=== PATIENT | female | born 1950 | race African-American/Black ===

== ENCOUNTER 2021-05-01 10:40 | Inpatient (IN) ==
[2021-05-01] MEDS ORDERED: ACETAMINOPHEN 325 MG TABLET PO ONE (11:18)
[2021-05-01] MEDS ORDERED: SODIUM CHLORIDE 0.9% 500 ML IV STA ×2 (11:18→12:26)
[2021-05-01 11:54] LABS: Basophils # 0.2 10*3/uL (0.0-0.2); Basophils % 0.9 % (0.0-0.8); Eosinophils % 0.2 % (0.00-10.9); Hematocrit 46.8 VOL% (35.7-47.0); Hemoglobin 15.9 GM/DL (12.0-16.0); Immature Granulocytes % 5.9 %; Immature Granulocytes Absolute 1.16 #; Lymphocytes # 2.2 10*3/uL (1.4-4.0); Lymphocytes % 11.2 % (21.3-54.2); Mean Platelet Volume 10.3 FL (9.6-12.0); Monocytes % 5.6 % (1.7-12.7); NRBC # 0.04 10*3/uL; Neutrophils % 76.2 % (38.7-73.9); Platelet Count 222 T/CUMM (130-400); Red Cell Distribution Width 13.5 % (9.3-17.3); White Blood Count 19.7 T/CUMM (4-12)
[2021-05-01 12:25] LABS: Albumin 2.5 G/DL (3.4-5.0); Calcium 9.3 MG/DL (8.5-10.1); Osmolality,Calculated 277.9 MOS/KG (273-304); Potassium 4.4 MMOL/L (3.5-5.1); Total Protein 7.3 G/DL (6.4-8.2)
[2021-05-01 13:28] LABS: Atypical Lymphocytes Few; Lymphocytes 18 % (20-55); Nucleated Red Blood Cells 1 (0-5); Platelet Estimate Adequate; Reactive Lymphocytes Few; Segmented Neutrophils 74 % (50-85); Total Cells Counted 100
[2021-05-01 14:14] LABS: Bilirubin,Urine Negative (Negative); Blood, Urine Negative (Negative); Glucose,Urine (UA) Negative (Negative); Ketones,Urine Negative (Negative); Nitrite,Urine Negative (Negative); Protein,Urine Negative; Squamous Epithelial Cell,Urine Occasional /HPF (0-10); Urine Appearance CLEAR (Clear); Urine Color Yellow (Yellow); Urine Specific Gravity 1.044 (1.001-1.035)
[2021-05-01 15:36] LABS: Barbiturates Screen,Urine Negative (Negative); Benzodiazepines Screen,Urine Negative (Negative); Cannabinoid Screen,Urine Negative (Negative); Opiate Screen,Urine Negative (Negative); Phencyclidine Screen,Urine Negative (Negative)
[2021-05-01] MEDS ORDERED: DEXTROSE 50% 25 GM/50 ML VIAL IV PRN (17:00)
[2021-05-01] MEDS ORDERED: GLUCAGON 1 MG VIAL IM PRN (17:00)
[2021-05-01] MEDS ORDERED: ONDANSETRON 4 MG/2 ML VIAL IV PRN (17:00)
[2021-05-01] MEDS: cefTRIAXone 1,000 MG in SODIUM CHLORIDE 0.9% 100 ML IV SCH (18:51)
[2021-05-01] MEDS: SODIUM CHLORIDE 0.9% 1,000 ML IV SCH (19:55)
[2021-05-01] MEDS: ACETAMINOPHEN 325 MG TABLET PO PRN (19:55)
[2021-05-02] MEDS: ACETAMINOPHEN 325 MG TABLET PO PRN ×2 (02:42→22:40)
[2021-05-02 08:04] LABS: Basophils # 0.2 10*3/uL (0.0-0.2); Basophils % 0.6 % (0.0-0.8); Eosinophils % 0.1 % (0.00-10.9); Mean Corpuscular Volume 91.3 FL (87-102); Mean Platelet Volume 9.8 FL (9.6-12.0); Platelet Count 186 T/CUMM (130-400)
[2021-05-02 08:10] LABS: Hematocrit 40.9 VOL% (35.7-47.0); Immature Granulocytes % 8.5 %; Immature Granulocytes Absolute 2.04 #; Lymphocytes # 3.2 10*3/uL (1.4-4.0); Lymphocytes % 13.3 % (21.3-54.2); Monocytes % 5.8 % (1.7-12.7); Neutrophils % 71.7 % (38.7-73.9); Red Blood Count 4.48 MC/CUMM (3.8-5.5); Red Cell Distribution Width 13.7 % (9.3-17.3); White Blood Count 24.1 T/CUMM (4-12)
[2021-05-02 08:11] LABS: Hemoglobin 13.9 GM/DL (12.0-16.0)
[2021-05-02 08:23] LABS: Albumin 1.8 G/DL (3.4-5.0); Bilirubin,Total 0.7 MG/DL (0.20-1.00); Calcium 8.7 MG/DL (8.5-10.1); Osmolality,Calculated 281.7 MOS/KG (273-304); Potassium 3.8 MMOL/L (3.5-5.1); Total Protein 6.6 G/DL (6.4-8.2)
[2021-05-02 08:24] LABS: Band Neutrophils 4 % (0-10); Hypochromasia Slight; Lymphocytes 8 % (20-55); Microcytosis Slight; Segmented Neutrophils 83 % (50-85); Total Cells Counted 100
[2021-05-02 08:25] LABS: Platelet Estimate Adequate
[2021-05-02] MEDS: PANTOPRAZOLE 40 MG TABLET PO SCH (08:27)
[2021-05-02] MEDS: SODIUM CHLORIDE 0.9% 1,000 ML IV SCH ×2 (08:29→22:40)
[2021-05-02] MEDS: NICOTINE 21 MG/24 HR PATCH TRANSDERM SCH (09:46)
[2021-05-02] MEDS ORDERED: DEXAMETHASONE 10 MG/1 ML VIAL IV ONE (09:58)
[2021-05-02] MEDS: cefTRIAXone 1,000 MG in SODIUM CHLORIDE 0.9% 100 ML IV SCH (17:26)
[2021-05-03] MEDS: NICOTINE 21 MG/24 HR PATCH TRANSDERM SCH (09:14)
[2021-05-03] MEDS: PANTOPRAZOLE 40 MG TABLET PO SCH (09:14)
[2021-05-03] MEDS: ACETAMINOPHEN 325 MG TABLET PO PRN ×2 (09:18→20:56)
[2021-05-03] MEDS: amLODIPine 5 MG TABLET PO SCH (14:04)
[2021-05-03] MEDS: predniSONE 20 MG TABLET PO SCH ×2 (14:04→20:56)
[2021-05-03] MEDS: cefTRIAXone 1,000 MG in SODIUM CHLORIDE 0.9% 100 ML IV SCH (19:07)
[2021-05-03] MEDS: LORazepam 0.5 MG TABLET PO PRN (20:56)
[2021-05-04] MEDS ORDERED: LORazepam 2 MG/1 ML VIAL IV ONE (00:52)
[2021-05-04 06:04] LABS: Basophils # 0.1 10*3/uL (0.0-0.2); Basophils % 0.5 % (0.0-0.8); Hematocrit 39.7 VOL% (35.7-47.0); Hemoglobin 13.2 GM/DL (12.0-16.0); Immature Granulocytes % 11.9 %; Immature Granulocytes Absolute 2.23 #; Lymphocytes # 2.2 10*3/uL (1.4-4.0); Lymphocytes % 11.8 % (21.3-54.2); Mean Corpuscular HGB Conc 33.2 GM/DL (32-36); Mean Corpuscular Volume 92.5 FL (87-102); Mean Platelet Volume 10.4 FL (9.6-12.0); Monocytes % 3.8 % (1.7-12.7); NRBC # 0.02 10*3/uL; Platelet Count 185 T/CUMM (130-400); Red Blood Count 4.29 MC/CUMM (3.8-5.5); Red Cell Distribution Width 13.7 % (9.3-17.3); White Blood Count 18.8 T/CUMM (4-12)
[2021-05-04 06:33] LABS: Hypochromasia 1+; Lymphocytes 12 % (20-55); Microcytosis Slight; Segmented Neutrophils 80 % (50-85); Total Cells Counted 100
[2021-05-04 06:34] LABS: Platelet Estimate Adequate
[2021-05-04] MEDS: LEVOTHYROXINE 50 MCG TABLET PO SCH (06:38)
[2021-05-04 07:43] LABS: Albumin 1.8 G/DL (3.4-5.0); Bilirubin,Total 0.5 MG/DL (0.20-1.00); Calcium 8.6 MG/DL (8.5-10.1); Total Protein 6.5 G/DL (6.4-8.2)
[2021-05-04 07:57] LABS: Potassium 4.1 MMOL/L (3.5-5.1)
[2021-05-04 08:05] LABS: Sedimentation Rate-Westergren 53 MM/HR (0-30)
[2021-05-04] MEDS ORDERED: AZITHROMYCIN INJ 500 MG in SODIUM CHLORIDE 0.9% 250 ML IV SCH (09:30)
[2021-05-04] MEDS: predniSONE 20 MG TABLET PO SCH ×2 (10:16→21:19)
[2021-05-04] MEDS: amLODIPine 5 MG TABLET PO SCH (10:16)
[2021-05-04] MEDS: PANTOPRAZOLE 40 MG TABLET PO SCH (10:16)
[2021-05-04] MEDS: LORazepam 0.5 MG TABLET PO PRN ×2 (10:16→21:19)
[2021-05-04] MEDS: ASPIRIN EC 81 MG TABLET PO SCH (10:16)
[2021-05-04] MEDS: NICOTINE 21 MG/24 HR PATCH TRANSDERM SCH (10:17)
[2021-05-04] MEDS: COLCHICINE 0.6 MG CAPSULE PO SCH ×2 (10:45→21:18)
[2021-05-04] MEDS: allopurinoL 100 MG TABLET PO SCH ×2 (10:45→21:19)
[2021-05-04] MEDS: cefTRIAXone 1,000 MG in SODIUM CHLORIDE 0.9% 100 ML IV SCH (18:34)
[2021-05-05] MEDS: ACETAMINOPHEN 325 MG TABLET PO PRN ×3 (02:09→20:34)
[2021-05-05] MEDS: LEVOTHYROXINE 50 MCG TABLET PO SCH (06:24)
[2021-05-05] MEDS: predniSONE 20 MG TABLET PO SCH ×2 (09:10→20:33)
[2021-05-05] MEDS: COLCHICINE 0.6 MG CAPSULE PO SCH ×2 (09:10→20:33)
[2021-05-05] MEDS: ASPIRIN EC 81 MG TABLET PO SCH (09:10)
[2021-05-05] MEDS: amLODIPine 5 MG TABLET PO SCH (09:11)
[2021-05-05] MEDS: allopurinoL 100 MG TABLET PO SCH ×2 (09:11→20:34)
[2021-05-05] MEDS: PANTOPRAZOLE 40 MG TABLET PO SCH (09:11)
[2021-05-05] MEDS: NICOTINE 21 MG/24 HR PATCH TRANSDERM SCH (09:11)
[2021-05-05] MEDS: LORazepam 0.5 MG TABLET PO PRN (20:35)
[2021-05-06 04:54] LABS: Basophils % 0.2 % (0.0-0.8); Hematocrit 41.2 VOL% (35.7-47.0); Hemoglobin 14.2 GM/DL (12.0-16.0); Immature Granulocytes % 4.5 %; Immature Granulocytes Absolute 0.57 #; Lymphocytes # 1.8 10*3/uL (1.4-4.0); Lymphocytes % 13.8 % (21.3-54.2); Mean Corpuscular HGB Conc 34.5 GM/DL (32-36); Mean Corpuscular Volume 91.4 FL (87-102); Mean Platelet Volume 9.6 FL (9.6-12.0); Monocytes % 3.8 % (1.7-12.7); Neutrophils % 77.7 % (38.7-73.9); Platelet Count 206 T/CUMM (130-400); Red Blood Count 4.51 MC/CUMM (3.8-5.5); Red Cell Distribution Width 13.4 % (9.3-17.3); White Blood Count 12.7 T/CUMM (4-12)
[2021-05-06 05:16] LABS: Band Neutrophils 1 % (0-10); Hypochromasia 1+; Lymphocytes 15 % (20-55); Segmented Neutrophils 81 % (50-85); Total Cells Counted 100
[2021-05-06 05:17] LABS: Microcytosis Slight; Platelet Estimate Normal
[2021-05-06 05:25] LABS: Calcium 8.3 MG/DL (8.5-10.1); Osmolality,Calculated 277.7 MOS/KG (273-304)
[2021-05-06] MEDS: LEVOTHYROXINE 50 MCG TABLET PO SCH (06:38)
[2021-05-06] MEDS ORDERED: hydrALAZINE 20 MG/1 ML VIAL IV PRN (07:51)
[2021-05-06] MEDS: SODIUM CHLORIDE 0.9% 1,000 ML IV SCH (08:08)
[2021-05-06] MEDS: NICOTINE 21 MG/24 HR PATCH TRANSDERM SCH (09:02)
[2021-05-06] MEDS: ASPIRIN EC 81 MG TABLET PO SCH (09:02)
[2021-05-06] MEDS: allopurinoL 100 MG TABLET PO SCH ×2 (09:02→20:52)
[2021-05-06] MEDS: LORazepam 0.5 MG TABLET PO PRN ×2 (09:02→20:53)
[2021-05-06] MEDS: COLCHICINE 0.6 MG CAPSULE PO SCH ×2 (09:02→20:51)
[2021-05-06] MEDS: predniSONE 20 MG TABLET PO SCH ×2 (09:03→20:52)
[2021-05-06] MEDS: PANTOPRAZOLE 40 MG TABLET PO SCH (09:03)
[2021-05-06] MEDS: amLODIPine 5 MG TABLET PO SCH (09:03)
[2021-05-06] MEDS ORDERED: TUBERCULIN SKIN TEST 0.1 ML SYRINGE INTRADERM ONE (12:02)
[2021-05-06] MEDS ORDERED: amLODIPine 5 MG TABLET PO ONE (12:12)
[2021-05-07 05:39] LABS: Basophils % 0.2 % (0.0-0.8); Hematocrit 43.4 VOL% (35.7-47.0); Hemoglobin 14.4 GM/DL (12.0-16.0); Immature Granulocytes % 1.6 %; Immature Granulocytes Absolute 0.18 #; Lymphocytes % 17.4 % (21.3-54.2); Mean Corpuscular HGB Conc 33.2 GM/DL (32-36); Mean Corpuscular Volume 91.2 FL (87-102); Mean Platelet Volume 9.4 FL (9.6-12.0); Neutrophils % 75.8 % (38.7-73.9); Platelet Count 240 T/CUMM (130-400); Red Blood Count 4.76 MC/CUMM (3.8-5.5); Red Cell Distribution Width 13.6 % (9.3-17.3); White Blood Count 11.2 T/CUMM (4-12)
[2021-05-07 05:58] LABS: Calcium 8.6 MG/DL (8.5-10.1); Osmolality,Calculated 275.8 MOS/KG (273-304); Potassium 4.1 MMOL/L (3.5-5.1)
[2021-05-07 06:02] LABS: Bilirubin,Direct 0.16 MG/DL (0.0-0.20); Bilirubin,Indirect 0.5 MG/DL (0.0-1.0); Bilirubin,Total 0.7 MG/DL (0.20-1.00); Total Protein 6.6 G/DL (6.4-8.2)
[2021-05-07] MEDS: LEVOTHYROXINE 50 MCG TABLET PO SCH (06:41)
[2021-05-07 08:39] LABS: Ferritin 621.5 ng/ml (8-252)
[2021-05-07] MEDS ORDERED: CHOLECALCIFEROL 1,000 UNIT TABLET PO SCH (09:00)
[2021-05-07] MEDS: LORazepam 0.5 MG TABLET PO PRN (10:52)
[2021-05-07] MEDS: predniSONE 20 MG TABLET PO SCH ×2 (10:57→21:55)
[2021-05-07] MEDS: ASPIRIN EC 81 MG TABLET PO SCH (10:57)
[2021-05-07] MEDS: amLODIPine 10 MG TABLET PO SCH (10:57)
[2021-05-07] MEDS: NICOTINE 21 MG/24 HR PATCH TRANSDERM SCH (10:57)
[2021-05-07] MEDS: COLCHICINE 0.6 MG CAPSULE PO SCH ×2 (10:57→21:55)
[2021-05-07] MEDS: PANTOPRAZOLE 40 MG TABLET PO SCH (10:58)
[2021-05-07] MEDS: allopurinoL 100 MG TABLET PO SCH ×2 (10:58→21:56)
[2021-05-07] MEDS: ENOXAPARIN 40 MG/0.4 ML SYRINGE SUBCUT SCH ×2 (10:58→21:56)
[2021-05-07] MEDS ORDERED: ZINC GLUCONATE 50 MG TABLET PO SCH (11:30)
[2021-05-07] MEDS: CHOLECALCIFEROL 1,000 UNIT TABLET PO SCH (14:33)
[2021-05-07] MEDS: ASCORBIC ACID 500 MG TABLET PO SCH ×2 (14:33→21:55)
[2021-05-07] MEDS: ZINC GLUCONATE 50 MG TABLET PO SCH (14:33)
[2021-05-08] MEDS: LORazepam 0.5 MG TABLET PO PRN ×2 (00:07→21:57)
[2021-05-08 05:29] LABS: Basophils % 0.1 % (0.0-0.8); Hematocrit 44.2 VOL% (35.7-47.0); Hemoglobin 15.2 GM/DL (12.0-16.0); Immature Granulocytes Absolute 0.11 #; Lymphocytes # 1.5 10*3/uL (1.4-4.0); Lymphocytes % 13.2 % (21.3-54.2); Mean Corpuscular HGB Conc 34.4 GM/DL (32-36); Mean Corpuscular Volume 91.1 FL (87-102); Mean Platelet Volume 9.5 FL (9.6-12.0); Monocytes % 3.1 % (1.7-12.7); Neutrophils % 82.6 % (38.7-73.9); Platelet Count 276 T/CUMM (130-400); Red Blood Count 4.85 MC/CUMM (3.8-5.5); Red Cell Distribution Width 13.7 % (9.3-17.3); White Blood Count 11.1 T/CUMM (4-12)
[2021-05-08] MEDS: LEVOTHYROXINE 50 MCG TABLET PO SCH (05:50)
[2021-05-08 06:00] LABS: Calcium 8.4 MG/DL (8.5-10.1); Ferritin 637.8 ng/ml (8-252); Osmolality,Calculated 274.1 MOS/KG (273-304); Potassium 4.1 MMOL/L (3.5-5.1)
[2021-05-08] MEDS: ENOXAPARIN 40 MG/0.4 ML SYRINGE SUBCUT SCH ×2 (10:37→21:55)
[2021-05-08] MEDS: amLODIPine 10 MG TABLET PO SCH (10:37)
[2021-05-08] MEDS: COLCHICINE 0.6 MG CAPSULE PO SCH ×2 (10:37→21:55)
[2021-05-08] MEDS: NICOTINE 21 MG/24 HR PATCH TRANSDERM SCH (10:37)
[2021-05-08] MEDS: ASPIRIN EC 81 MG TABLET PO SCH (10:37)
[2021-05-08] MEDS: predniSONE 20 MG TABLET PO SCH ×2 (10:38→21:55)
[2021-05-08] MEDS: ASCORBIC ACID 500 MG TABLET PO SCH ×2 (10:38→21:56)
[2021-05-08] MEDS: PANTOPRAZOLE 40 MG TABLET PO SCH (10:38)
[2021-05-08] MEDS: allopurinoL 100 MG TABLET PO SCH ×2 (10:39→21:56)
[2021-05-08] MEDS: CHOLECALCIFEROL 1,000 UNIT TABLET PO SCH (10:39)
[2021-05-08] MEDS: ZINC GLUCONATE 50 MG TABLET PO SCH (10:39)
[2021-05-09 05:15] LABS: Basophils % 0.1 % (0.0-0.8); Eosinophils % 0.2 % (0.00-10.9); Hematocrit 41.9 VOL% (35.7-47.0); Immature Granulocytes Absolute 0.12 #; Lymphocytes # 4.3 10*3/uL (1.4-4.0); Mean Corpuscular HGB Conc 33.4 GM/DL (32-36); Mean Corpuscular Volume 92.9 FL (87-102); Mean Platelet Volume 9.1 FL (9.6-12.0); Monocytes % 7.1 % (1.7-12.7); Neutrophils % 55.6 % (38.7-73.9); Platelet Count 284 T/CUMM (130-400); Red Blood Count 4.51 MC/CUMM (3.8-5.5); Red Cell Distribution Width 13.8 % (9.3-17.3); White Blood Count 12.1 T/CUMM (4-12)
[2021-05-09 05:43] LABS: Lymphocytes 35 % (20-55); Platelet Estimate Normal; Segmented Neutrophils 59 % (50-85); Total Cells Counted 100
[2021-05-09 06:05] LABS: Calcium 8.3 MG/DL (8.5-10.1); Osmolality,Calculated 281.4 MOS/KG (273-304); Potassium 3.4 MMOL/L (3.5-5.1)
[2021-05-09] MEDS: LEVOTHYROXINE 50 MCG TABLET PO SCH (06:34)
[2021-05-09] MEDS ORDERED: POTASSIUM CHLORIDE 20 MEQ TABLET PO ONE (07:12)
[2021-05-09] MEDS: NICOTINE 21 MG/24 HR PATCH TRANSDERM SCH (11:30)
[2021-05-09] MEDS: ASCORBIC ACID 500 MG TABLET PO SCH (11:30)
[2021-05-09] MEDS: allopurinoL 100 MG TABLET PO SCH (11:31)
[2021-05-09] MEDS: CHOLECALCIFEROL 1,000 UNIT TABLET PO SCH (11:31)
[2021-05-09] MEDS: PANTOPRAZOLE 40 MG TABLET PO SCH (11:31)
[2021-05-09] MEDS: amLODIPine 10 MG TABLET PO SCH (11:31)
[2021-05-09] MEDS: ENOXAPARIN 40 MG/0.4 ML SYRINGE SUBCUT SCH (11:32)
[2021-05-09] MEDS: ASPIRIN EC 81 MG TABLET PO SCH (11:32)
[2021-05-09] MEDS: COLCHICINE 0.6 MG CAPSULE PO SCH (12:11)
[2021-05-09 13:57] VITALS: BP 127/66
[2021-05-09] MEDS: ZINC GLUCONATE 50 MG TABLET PO SCH (14:24)
[2021-05-09] MEDS: predniSONE 20 MG TABLET PO SCH (14:26)
== END 2021-05-09 14:45 | disposition home health service (06) | DRG 947 ==
LOC: N.EDINP 10:40 → N.ED 10:40 → SUATTDRO 16:58 → N.4E 19:00 → N.2E 05-07 17:20
PROVIDERS: ADMIT Internal Medicine; ATTEND Internal Medicine